=== PATIENT | female | born 1970 | race Asian ===

== ENCOUNTER → 2021-03-30 | Outpatient (CLI) | payer OTHER ==
--- NOTE | 2021-04-01 11:40 | RESP ---
DATE OF SERVICE: 03/30/2021 SPIROMETRY ATTENDING PHYSICIAN: Dr. Metz. The patient's FVC was 3.79, which is 102% predicted. FEV1 3.12, which is 106% predicted. FEV1/FVC ratio was normal. IMPRESSION: Normal spirometry. CISCO DR: [place] TID: [id number]
== END ==
LOC: PF 09:56
DX: J45.40 Moderate persistent asthma, uncomplicated (principal)
CPT/HCPCS: 94010